=== PATIENT | male | born 1985 | race Caucasian/White ===

== ENCOUNTER 2016-12-22 13:23 | Emergency (ER) | payer MEDICAID, OTHER ==
[2016-12-22 13:34] VITALS: BP 130/86; PULSE 66; TEMP 97.7; O2SAT 99
[2016-12-22] MEDS ORDERED: Lidocaine 1% Inj (20ml) INFIL STA (13:47)
[2016-12-22] MEDS ORDERED: Tmp-Smz 800 mg-160 mg DS Tab PO STA (13:47)
[2016-12-22] MEDS ORDERED: Lidocaine 1% Inj (20ml) ONE (13:50)
[2016-12-22] MEDS ORDERED: Tmp-Smz 800 mg-160 mg DS Tab ONE (13:56)
--- NOTE | 2016-12-22 14:10 | C.PDOC ---
History Of Present Illness 31 year old male presents to ED with complaints of pain and swelling to left axilla for 6 days. He reports feeling lump to area which has been growing in size. Denies any fever or drainage and no prior similar episodes. Time Seen by Provider: 12/22/16 13:38 Chief Complaint (Nursing): Abnormal Skin Integrity History Per: Patient History/Exam Limitations: no limitations Onset/Duration Of Symptoms: Days Location Of Injury: Left: Arm (axilla abscess) Past Medical History Reviewed: Historical Data, Nursing Documentation, Vital Signs Vital Signs: Last Vital Signs Temp 97.7 F 12/22/16 13:32 Pulse 66 12/22/16 13:32 Resp 20 12/22/16 14:54 BP 130/86 12/22/16 13:32 Pulse Ox 99 12/22/16 15:46 - Medical History PMH: Seizures Surgical History: Tonsillectomy Family History: States: Unknown Family Hx - Social History Hx Tobacco Use: No Hx Alcohol Use: No Hx Substance Use: No - Immunization History Hx Tetanus Toxoid Vaccination: (unk) Hx Influenza Vaccination: No Hx Pneumococcal Vaccination: No Review Of Systems Except As Marked, All Systems Reviewed And Found Negative. Skin: Positive for: Other (absess to left axilla) Physical Exam - Physical Exam Appears: Non-toxic, No Acute Distress Skin: Warm, Dry, Other (4x3cm tender erythematous fluctuant mass to left axilla) Head: Atraumatic, Normacephalic Eye(s): bilateral: Normal Inspection Neck: Normal ROM Extremity: Normal ROM, No Swelling, Other (pain to left axilla with tender mass) Pulses: Left Radial: Normal Neurological/Psych: Oriented x3, Normal Speech ED Course And Treatment O2 Sat by Pulse Oximetry: 99 - Incision & Drainage Of Abscess Anesthesia: Lidocaine 1% Prep Used: Sterile Water, Betadine Procedure: Incised W/Scalpel Blade#: (11), Drained Pus, Irrigated Cavity W/ Saline, Cultures Obtained And Sent To Lab Medical Decision Making Medical Decision Making: Patient with abscess to left axilla. Area prepped with betadyne and anesthesia achieved using local lidocaine 1%. Incision was made with blade #11 and area was drained of purulent material. Wound cultures obtained and sent to the lab. Area was irrigated with NS. Dressing was applied. Patient tolerated well. Bactrim DS PO was given. Patient given instructions on wound care and recommend follow up for wound check in 2 days. Disposition Counseled Patient/Family Regarding: Diagnosis, Need For Followup, Rx Given - Disposition Disposition: HOME/ ROUTINE Disposition Time: 14:10 Condition: STABLE Additional Instructions: Remove dressing in 24 hours. Change dressing 1-2 times daily. Take antibiotics twice a day. Follow up for wound check in 2-3 days. Prescriptions: Sulfamethoxazole/Trimethoprim [Bactrim DS 800 mg-160 mg] 1 tab PO BID #14 tab traMADol [Ultram] 50 mg PO Q8 #14 tab Instructions: Abscess Incision and Drainage (ED) Forms: [employer] (Korean) - POA Present On Arrival: None - Clinical Impression Clinical Impression: Axillary abscess
[2016-12-22 14:54] VITALS: RESP 20
== END 2016-12-22 14:54 | disposition home or self-care (01) ==
LOC: C.ER 13:23
DX: L02.412 Cutaneous abscess of left axilla (principal)

== ENCOUNTER 2017-06-10 01:30 | Emergency (ER) | payer SELFPAY ==
--- NOTE | 2017-06-10 01:36 | C.PDOC ---
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 Patient admits he was discharged from rehab yesterday. Denies fever or chills. Time Seen by Provider: 06/10/17 01:36 History Per: Patient History/Exam Limitations: no limitations Onset/Duration Of Symptoms: Hrs Current Symptoms Are (Timing): Still Present Suicide/Self Injury Attempted (Context): None Modifying Factor(s): Other (Heroin) Severity: Moderate Pain Scale Rating Of: 4 Associated Symptoms: denies: Depression, Suicidal Thoughts Involuntary Hold By: None Recent travel outside of the [place]: No Past Medical History Reviewed: Historical Data, Nursing Documentation, Vital Signs Vital Signs: Last Vital Signs Temp 98.3 F 06/10/17 01:42 Pulse 84 06/10/17 03:36 Resp 18 06/10/17 03:36 BP 113/61 06/10/17 03:36 Pulse Ox 99 06/10/17 03:36 - Medical History PMH: Seizures Surgical History: Tonsillectomy Family History: States: No Known Family Hx - Social History Hx Tobacco Use: No Hx Alcohol Use: No Hx Substance Use: No - Immunization History Hx Tetanus Toxoid Vaccination: (unk) Hx Influenza Vaccination: No Hx Pneumococcal Vaccination: No Review Of Systems Constitutional: Negative for: Fever, Chills Cardiovascular: Negative for: Chest Pain, Palpitations Respiratory: Negative for: Cough, Shortness of Breath Gastrointestinal: Positive for: Vomiting (Actively) Physical Exam - Physical Exam Appears: Non-toxic, Other (Actively vomiting) Skin: Warm, Dry Head: Normacephalic Oral Mucosa: Moist Chest: Symmetrical, No Tenderness Cardiovascular: Rhythm Regular Respiratory: No Rales, No Rhonchi, No Wheezing Gastrointestinal/Abdominal: Soft, No Tenderness Neurological/Psych: Oriented x3 ED Course And Treatment O2 Sat by Pulse Oximetry: 99 Pulse Ox Interpretation: Normal Reevaluation Time: 04:53 Reassessment Condition: Improved Disposition Counseled Patient/Family Regarding: Studies Performed, Diagnosis, Need For Followup, Rx Given - Disposition Referrals: [facility] [Outside] Disposition: HOME/ ROUTINE Disposition Time: 01:36 Condition: FAIR Prescriptions: Naloxone HCl [Narcan] 4 mg NS ONCE PRN #1 spray PRN Reason: overdose Instructions: Narcotic Overdose (DC) - Clinical Impression Clinical Impression: OD (overdose of drug) - Scribe Statement The provider has reviewed the documentation as recorded by the Scribe Mahesh Barrios All medical record entries made by the Scribe were at my direction and personally dictated by me. I have reviewed the chart and agree that the record accurately reflects my personal performance of the history, physical exam, medical decision making, and the department course for this patient. I have also personally directed, reviewed, and agree with the discharge instructions and disposition.
[2017-06-10 05:34] VITALS: BP 109/58; PULSE 89; RESP 14; TEMP 98.5; O2SAT 97
== END 2017-06-10 05:41 | disposition home or self-care (01) ==
LOC: C.ER 01:30
DX: T40.1X1A Poisoning by heroin, accidental (unintentional), initial encounter (principal)